=== PATIENT | female | born 1965 | race Caucasian/White ===

== ENCOUNTER 2018-11-29 12:56 | Inpatient (IN) | payer OTHER ==
[~2018-11-29] VITALS: Ht 165.1 cm; Wt 86.2 kg
== END 2018-12-07 14:05 | disposition home or self-care (01) | DRG 621 ==
LOC: EDBD → CIR.AMB 11-30 09:26 → SURH 11-30 09:27 → EDSTATUS 11-30 09:27 → SURH 11-30 09:53 → O/R 12-06 08:28 → SURH 12-06 17:24
PROVIDERS: ADMIT Plastic Surgery
PROC: 0WBF0ZZ Excision of Abdominal Wall, Open Approach (ICD-10-PCS; 2018-12-06)
PROC: 0J053ZZ Alteration of Left Neck Subcutaneous Tissue and Fascia, Percutaneous Approach (ICD-10-PCS; principal; 2018-12-06 11:00)
PROC: 0J043ZZ Alteration of Right Neck Subcutaneous Tissue and Fascia, Percutaneous Approach (ICD-10-PCS; 2018-12-06 11:00)
DX: E65 Localized adiposity (principal); E88.1 Lipodystrophy, not elsewhere classified; E66.09 Other obesity due to excess calories